=== PATIENT | male | born 1980 | race Caucasian/White ===

== ENCOUNTER → 2017-12-14 | Outpatient (CLI) | payer OTHER | END | disposition home or self-care (01) | LOC: TOM 12:25 | DX: R10.10 Upper abdominal pain, unspecified (principal); N40.0 Benign prostatic hyperplasia without lower urinary tract symptoms ==

== ENCOUNTER 2022-05-22 08:28 | Outpatient (CLI) | payer OTHER | END 2022-05-22 08:33 | disposition home or self-care (01) | LOC: RAD 08:28 | DX: R07.81 Pleurodynia (principal); M99.01 Segmental and somatic dysfunction of cervical region; M99.02 Segmental and somatic dysfunction of thoracic region; M99.03 Segmental and somatic dysfunction of lumbar region; M54.2 Cervicalgia ==